=== PATIENT | female | born 1975 | race Caucasian/White ===

== ENCOUNTER 2018-03-13 05:36 | Inpatient (IN) | payer OTHER ==
[2018-03-13] MEDS: CEFAZOLIN 2 GM/50 ML (PMX) 50 ML IVPB (06:00)
[2018-03-13] MEDS: LACTATED RINGER'S 1,000 ML IV* (06:00)
[2018-03-13 06:53] LABS: INR 0.88; PARTIAL THROMBOPLASTIN TIME 26.7 Sec (25.0-35.0); PT RATIO 0.9
[2018-03-13] MEDS ORDERED: EPHEDrine SULFATE 50 MG/5 ML SYG (07:00)
[2018-03-13] MEDS ORDERED: METOCLOPRAMIDE 10 MG INJ (07:36)
[2018-03-13] MEDS ORDERED: ONDANSETRON 4 MG INJ (07:36)
[2018-03-13] MEDS ORDERED: morphine SULFATE/PF (10 MG/10 ML) INJ (07:36)
[2018-03-13] MEDS ORDERED: MIDAZOLAM 1 MG/ML 2 ML INJ (07:36)
[2018-03-13] MEDS ORDERED: PROPOFOL 20 ML (07:36)
[2018-03-13] MEDS ORDERED: CEFAZOLIN 1 GM INJ (07:37)
[2018-03-13] MEDS ORDERED: BUPIVACAINE 0.75%/DEXT (SPINAL) 2 ML INJ (07:46)
[2018-03-13] MEDS ORDERED: METOCLOPRAMIDE 10 MG INJ IV (08:00)
[2018-03-13] MEDS ORDERED: KETOROLAC 30 MG INJ IV (08:00)
[2018-03-13] MEDS ORDERED: HYDROmorphONE 1 MG/5 ML IV SYRINGE IV ×2 (08:30)
[2018-03-13] MEDS ORDERED: ONDANSETRON 4 MG INJ IV (08:30)
[2018-03-13] MEDS ORDERED: MEPERIDINE 25 MG INJ IV (08:30)
[2018-03-13] MEDS ORDERED: DIPHENHYDRAMINE 50 MG INJ IV (08:30)
[2018-03-13] MEDS ORDERED: KETOROLAC 30 MG INJ (08:36)
[2018-03-13] MEDS: ONDANSETRON 4 MG INJ IV ×2 (09:29→12:25)
[2018-03-13] MEDS: HYDROmorphONE 1 MG/5 ML IV SYRINGE IV (09:39)
[2018-03-13] MEDS: morphine 2 MG INJ IV (12:25)
[2018-03-13] MEDS: HYDROCODONE/APAP (5/325) TAB PO (20:16)
[2018-03-14] MEDS: HYDROCODONE/APAP (5/325) TAB PO ×3 (03:04→18:42)
[2018-03-14 06:15] LABS: ADD MAN DIFF? NO
[2018-03-14 06:19] LABS: BASOPHILS % 0.2 % (0.0-2.0); EOSINOPHILS % 0.2 % (0.0-7.0); HEMATOCRIT 32.5 % (37.0-47.0); LYMPHOCYTES # 1.9 10^3/ul (0.8-2.9); LYMPHOCYTES % 22.4 % (15.0-51.0); MEAN CORPUSCULAR HEMOGLOBIN 31.3 pg (29.0-33.0); MEAN CORPUSCULAR HGB CONC 33.8 g/dl (32.0-37.0); MEAN CORPUSCULAR VOLUME 92.6 fl (82.0-101.0); MONOCYTE # 0.6 10^3/ul (0.3-0.9); MONOCYTES % 7.4 % (0.0-11.0); NEUTROPHIL # 5.8 10^3/ul (1.6-7.5); NEUTROPHILS % 69.4 % (39.0-77.0); PLATELET COUNT 207 10^3/UL (140-415); RED BLOOD COUNT 3.51 10^6/ul (4.20-5.40); RED CELL DISTRIBUTION WIDTH 12.2 % (11.5-14.5)
[2018-03-14 06:19] LABS: WHITE BLOOD COUNT 8.4 10^3/ul (4.8-10.8)
[2018-03-14] MEDS: MAGNESIUM HYDROXIDE 30ML CUP PO (12:06)
[2018-03-14] MEDS: MAGNESIUM CITRATE 300 ML BTL PO (13:04)
[2018-03-15] MEDS: HYDROCODONE/APAP (5/325) TAB PO ×3 (01:51→14:09)
== END 2018-03-15 14:25 | disposition home or self-care (01) | DRG 743 ==
LOC: REC 05:36 → 2NE 10:25
PROC: 0UT70ZZ Resection of Bilateral Fallopian Tubes, Open Approach (ICD-10-PCS; principal; 2018-03-13 07:30)
PROC: 0UB10ZZ Excision of Left Ovary, Open Approach (ICD-10-PCS; 2018-03-13 07:30)
DX: N83.202 Unspecified ovarian cyst, left side (principal)
CPT/HCPCS: 85025; 85610; 85730; 87086; 88305; 93005

== ENCOUNTER 2018-12-21 06:24 | Day surgery (SDC) | payer OTHER ==
[2018-12-21] MEDS ORDERED: KETOROLAC 30 MG INJ (06:47)
[2018-12-21] MEDS ORDERED: PROPOFOL 20 ML (06:47)
[2018-12-21] MEDS ORDERED: ONDANSETRON 4 MG INJ (06:47)
[2018-12-21] MEDS ORDERED: CEFAZOLIN 1 GM INJ (06:47)
[2018-12-21] MEDS ORDERED: ROCURONIUM 50 MG INJ (06:47)
[2018-12-21] MEDS ORDERED: MIDAZOLAM 1 MG/ML 2 ML INJ (06:47)
[2018-12-21] MEDS ORDERED: DESFLURANE 15 MIN (07:00)
[2018-12-21 07:23] LABS: ADD MAN DIFF? NO
[2018-12-21 07:26] LABS: WHITE BLOOD COUNT 7.6 10^3/ul (4.8-10.8)
[2018-12-21 07:26] LABS: BASOPHILS % 0.4 % (0.0-2.0); EOSINOPHILS # 0.1 10^3/ul (0.0-0.5); EOSINOPHILS % 1.7 % (0.0-7.0); HEMATOCRIT 38.9 % (37.0-47.0); HEMOGLOBIN 13.1 g/dl (12.0-16.0); LYMPHOCYTES # 2.2 10^3/ul (0.8-2.9); LYMPHOCYTES % 28.6 % (15.0-51.0); MEAN CORPUSCULAR HGB CONC 33.7 g/dl (32.0-37.0); MEAN CORPUSCULAR VOLUME 92.2 fl (82.0-101.0); MEAN PLATELET VOLUME 10.5 fl (7.4-10.4); MONOCYTE # 0.5 10^3/ul (0.3-0.9); MONOCYTES % 6.5 % (0.0-11.0); NEUTROPHIL # 4.7 10^3/ul (1.6-7.5); NEUTROPHILS % 62.5 % (39.0-77.0); PLATELET COUNT 267 10^3/UL (140-415); RED BLOOD COUNT 4.22 10^6/ul (4.20-5.40); RED CELL DISTRIBUTION WIDTH 12.1 % (11.5-14.5)
[2018-12-21] MEDS: SOD CHLORIDE 0.9% 1,000 ML IV (07:46)
[2018-12-21 07:48] LABS: INR 0.94; PROTIME 12.7 Sec (11.9-14.9)
[2018-12-21 07:49] LABS: PARTIAL THROMBOPLASTIN TIME 28.2 Sec (23.0-35.0)
[2018-12-21 07:51] LABS: ALANINE AMINOTRANSFERASE 38 IU/L (13-69); ALBUMIN 4.5 g/dl (3.3-4.9); ALBUMIN/GLOBULIN RATIO 1.32; ALKALINE PHOSPHATASE 63 IU/L (42-121); ANION GAP 9 (5-13); ASPARTATE AMINO TRANSFERASE 24 IU/L (15-46); BILIRUBIN,INDIRECT 0.4 mg/dl (0-1.1); BILIRUBIN,TOTAL 0.4 mg/dl (0.2-1.3); BLOOD UREA NITROGEN 18 mg/dl (7-20); CALCIUM 9.5 mg/dl (8.4-10.2); CARBON DIOXIDE 25 mmol/L (21-31); CHLORIDE 110 mmol/L (97-110); CREATININE 0.82 mg/dl (0.44-1.00); Estimated GFR > 60 mL/min (>60); GLUCOSE 118 mg/dl (70-220); POTASSIUM 4.2 mmol/L (3.5-5.1); SODIUM 144 mmol/L (135-144); TOTAL PROTEIN 7.9 g/dl (6.1-8.1)
[2018-12-21] MEDS ORDERED: HYDROmorphONE 1 MG/5 ML IV SYRINGE IV (09:30)
[2018-12-21] MEDS ORDERED: FENTAnyl 50 MCG/ML VIAL IV (09:30)
[2018-12-21] MEDS ORDERED: OXYCODONE/ACETAMINOPHEN (5/325) TAB PO (09:30)
[2018-12-21] MEDS ORDERED: ONDANSETRON 4 MG INJ IV (09:30)
[2018-12-21] MEDS ORDERED: NEOSTIGMINE 3 MG/3 ML SYRINGE (10:04)
[2018-12-21] MEDS ORDERED: GLYCOPYRROLATE 0.4 MG INJ (10:04)
[2018-12-21] MEDS: BUPIVACAINE 0.25% (MPF) 30 ML INJ (10:24)
[2018-12-21] MEDS: POLYMYXIN/BACITRACIN 1L IRRIG (10:24)
[2018-12-21] MEDS: HYDROCODONE/APAP (5/325) TAB PO (11:17)
[2018-12-21] MEDS ORDERED: CEFAZOLIN 2 GM/50 ML (PMX) 50 ML IVPB (11:30)
[2018-12-21] MEDS: HYDROmorphONE 1 MG/ML SYG IV (13:55)
[2018-12-21] MEDS: KETOROLAC 30 MG INJ IV (15:16)
== END 2018-12-21 16:40 | disposition home or self-care (01) ==
LOC: SDS 06:24
DX: K40.30 Unilateral inguinal hernia, with obstruction, without gangrene, not specified as recurrent (principal)
CPT/HCPCS: 49507; 80053; 84703; 85025; 85610; 85730